=== PATIENT | female | born 1985 | race Caucasian/White ===

== ENCOUNTER 2017-09-03 07:18 | Emergency (ER) | payer SELFPAY ==
[2017-09-03 07:28] VITALS: BP 144/94; PULSE 110; TEMP 97.9; BMI 36.0
[2017-09-03] MEDS ORDERED: SODIUM CHLORIDE 0.9% 1000 ML INFUS.BAG IV ONE (07:29)
[2017-09-03] MEDS ORDERED: ONDANSETRON 4 MG/2 ML VIAL IVPUSH ONE (07:29)
[2017-09-03] MEDS ORDERED: HYDROmorphone HCL CARPU-JECT 1 MG/1 ML DISP.SYRIN IVPUSH ONE ×3 (07:33→11:00)
[2017-09-03] MEDS ORDERED: ONDANSETRON 4 MG/2 ML VIAL ONE (07:41)
[2017-09-03] MEDS ORDERED: HYDROmorphone HCL CARPU-JECT 1 MG/1 ML DISP.SYRIN ONE ×3 (07:41→11:11)
--- NOTE | 2017-09-03 07:52 | PDOC ---
History of Present Illness - General Chief Complaint: Nausea/Vomiting Stated Complaint: VOMITING,ABD PAIN Time Seen by Provider: 09/03/17 07:26 - History of Present Illness Initial Comments: 09/03/17 10:26 Chief complaint right flank pain History of present illness: 31 years old past medical history significant for asthma, polycystic ovarian disease presents to the emergency department with gradual onset right flank pain starting last night associated with nausea vomiting. Pain is 10 out of 10 colicky no alleviating factors worse with movement. Patient had similar symptoms approximately one year ago secondary to a ruptured ovarian cyst Her pain today is higher up on the right side and right flank Past History - Past Medical History Allergies/Adverse Reactions: Allergies Allergy/AdvReac Type Severity Reaction Status Date / Time morphine Allergy Hives Verified 09/03/17 07:24 Home Medications: Ambulatory Orders Famotidine [Pepcid] 20 mg PO DAILY 09/03/17 Oxycodone HCl/Acetaminophen [Percocet 5-325 mg Tablet] 1 tab PO Q6H #12 tablet MDD 3 09/03/17 COPD: No Other medical history: PCOS - Suicide/Smoking/Psychosocial Hx Smoking History: Never smoked Have you smoked in the past 12 months: No Information on smoking cessation initiated: No Hx Alcohol Use: No Drug/Substance Use Hx: No Substance Use Type: None Review of Systems - Review of Systems Comments:: 09/03/17 10:27 ROS: A complete review of 10 out of 10 review of systems is taken and is negative apart from what is previously mentioned below and in the HPI. *Physical Exam - Vital Signs Last Vital Signs Temp Pulse Resp BP Pulse Ox 97.9 F 110 H 20 144/94 100 09/03/17 07:19 09/03/17 07:19 09/03/17 07:19 09/03/17 07:19 09/03/17 07:19 - Physical Exam Comments: 09/03/17 10:27 Vitals: Triage Vital signs reviewed General Appearance: no acute distress, well nourished well developed, Head: Atraumatic, Eyes: Pupils equal reactive round, extraocular movement intact Neck: Supple;No Nucal rigidity Chest Wall: Nontender Cardiac: Regular rate and rhythym, no murmurs, no rubs, no gallops, Lungs: Clear to auscultation bilateral, good air movement bilaterally, Abdomen: Soft, non distended, normal bowel sounds, non tender to palpation, right CVA tenderness to palpation Extremities: Full range of motion to all extremities, no cyanosis, clubbing, or edema Skin: Warm and dry, no rashes or lesions, no rash, no petechiae Neuro: AOX3]; [Cranial Nerves 2-12 grossly intact], [Strength intact to all extremities], [Sensation intact to all extremities],[gait normal] Psych: [normal mood, normal affect] ED Treatment Course - LABORATORY CBC & Chemistry Diagram: 09/03/17 08:04 09/03/17 08:04 Medical Decision Making - Medical Decision Making 09/03/17 13:13 31 years old with right sided abdominal pain. On pelvic examination patient tender in the right adnexal Despite multiple rounds pain medication patient still in pain Ultrasound demonstrates 2.6 cm cyst Given pain CAT scan ordered to rule out additional pathology CAT scan findings as dictated no other acute additional pathology besides cyst Case discussed with [facility]. Given size of cyst no acute surgical intervention needed no evidence of torsion. Patient can follow-up on Wednesday at clinic We'll discharge home with Percocet and Motrin Findings, the need for follow-up, strict return instructions discussed with patient. *DC/Admit/Observation/Transfer Diagnosis at time of Disposition: Ovarian cyst Qualifiers: Laterality: right Qualified Code(s): N83.201 - Unspecified ovarian cyst, right side - Discharge Dispostion Admit: No - Referrals Referrals: Blanca Rothman MD [Staff Physician] - - Patient Instructions Printed Discharge Instructions: Ovarian Cyst Additional Instructions: Purchase an [id number] stool softener., Such as Colace take as prescribed on package. Percocet as directed as needed for pain. Take Aleve 2 tabs twice a day. Drink plenty of fluids. On Wednesday follow-up with [facility]CE ASSOCIATE. Return to the emergency department for any severe uncontrollable pain fever or for any concerns. - Post Discharge Activity
[2017-09-03] MEDS ORDERED: KETOROLAC TROMETHAMINE 30 MG/1 ML VIAL ONE (08:14)
[2017-09-03] MEDS ORDERED: KETOROLAC TROMETHAMINE 30 MG/1 ML VIAL IVPUSH ONE (08:24)
[2017-09-03 08:51] LABS: PH,URINE 5.5 (4.5-8); URINE BILIRUBIN 1+ (NEGATIVE); URINE GLUCOSE (UA) Negative (NEGATIVE); URINE KETONE Trace (NEGATIVE); URINE NITRITE Negative (NEGATIVE); URINE UROBILINOGEN 0.2 (0.2-1.0)
[2017-09-03 09:01] LABS: URINE APPEARANCE CLOUDY; URINE BLOOD 1+ (NEGATIVE); URINE COLOR YELLOW; URINE PROTEIN 1+ (NEGATIVE)
[2017-09-03 09:01] LABS: EOS % 0.9 % (0-4.5); HEMATOCRIT 30.7 % (32.4-45.2); HEMOGLOBIN 9.5 GM/dl (10.7-15.3); LYMPH % 6.3 % (8-40); MCH 24.2 pg (25.7-33.7); MCHC 30.9 g/dl (32.0-36.0); MEAN CELL VOLUME 78.2 fl (80-96); MEAN PLT VOLUME 9.3 fl (7.5-11.1); MONO % 7.3 % (3.8-10.2); NEUT % 85.5 % (42.8-82.8); PLATELET COUNT 413 K/MM3 (134-434); RBC 3.93 M/mm3 (3.60-5.2); RDW 16.2 % (11.6-15.6); WHITE BLOOD COUNT 9.6 K/mm3 (4.0-10.8)
[2017-09-03 09:02] LABS: INR 1.14 (0.82-1.09); PROTHROMBIN TIME (PATIENT) 12.7 SEC (10.2-13.0)
[2017-09-03 09:02] LABS: ALBUMIN 4.4 g/dl (3.5-5.0); ALK PHOS 55 U/L (32-92); ANION GAP 6 (8-16); BILIRUBIN,TOTAL 0.4 mg/dl (0.2-1.0); BLOOD UREA NITROGEN 8 mg/dl (7-18); CALCIUM 9.2 mg/dl (8.4-10.2); CHLORIDE 107 mmol/L (98-107); CO2 22 mmol/L (22-28); CREATININE 0.5 mg/dl (0.6-1.3); GLUCOSE,RANDOM 98 mg/dl (74-106); POTASSIUM 4.1 mmol/L (3.5-5.1); SGOT/AST 24 U/L (10-42); SGPT/ALT 17 U/L (10-40); SODIUM 135 mmol/L (136-145); TOT PROT 7.9 g/dl (6.4-8.3)
[2017-09-03 09:10] LABS: ACTIVATED PTT 19.7 SECONDS (24.0-38.9)
[2017-09-03 10:18] LABS: EPI CELLS FEW /HPF; URINE BACTERIA FEW /hpf (NEGATIVE)
== END 2017-09-03 13:24 | disposition home or self-care (01) ==
LOC: FER 07:18
PROC: 3E0337Z Introduction of Electrolytic and Water Balance Substance into Peripheral Vein, Percutaneous Approach (ICD-10-PCS; principal; 2017-09-03)
PROC: 3E033NZ Introduction of Analgesics, Hypnotics, Sedatives into Peripheral Vein, Percutaneous Approach (ICD-10-PCS; 2017-09-03)
PROC: 3E0333Z Introduction of Anti-inflammatory into Peripheral Vein, Percutaneous Approach (ICD-10-PCS; 2017-09-03)
PROC: 3E033GC Introduction of Other Therapeutic Substance into Peripheral Vein, Percutaneous Approach (ICD-10-PCS; 2017-09-03)
DX: N83.201 Unspecified ovarian cyst, right side (principal)
CPT/HCPCS: 36415; 74177-TC; 76856-TC; 80053; 81003; 81015; 84703; 85025; 85610; 85730; 86850; 86900; 86901; 99283-25

== ENCOUNTER 2017-09-06 16:10 | Emergency (ER) | payer SELFPAY ==
[2017-09-06 16:20] VITALS: BP 175/115; PULSE 113; TEMP 98.6; BMI 36.0
--- NOTE | 2017-09-06 16:27 | PDOC ---
History of Present Illness - General History Source: Patient Exam Limitations: No Limitations - History of Present Illness Initial Comments: 09/06/17 16:36 The patient is a 31 year old female, with a significant past medical history of PCOS, peptic ulcer disease, and asthma, who presents to the emergency department with abdominal pain since earlier this morning. The patient reports her pain is localized to her epigastrum and radiates into her back. She describes her pain as sharp in nature, and "piercing into his back." She reports associated nausea and vomiting(nonbloody/nonbilious), but denies any hemoptysis, diarrhea, constipation, melena, or hematochezia. Patient reports her pain is exacerbated with emesis. Patients last normal bowel movement was this morning. Patient reports she has been unable to tolerate solids or fluids p.o. The patient denies any fever, chills, headache, or dizziness. She denies any chest pain, shortness of breath, diaphoresis, or palpitations. She denies any dysuria, hematuria, frequency or urgency. She denies any recent travel or sick contacts. Patient reports she is currently on her menstrual period. Allergies: Morphine Past Surgical History: None reported Social History: Former smoker(Quit 5 years ago). No ETOH or recreational drug use. <Venice Em - Last Filed: 09/06/17 16:50> <Ree Reagan - Last Filed: 09/06/17 17:22> - General Chief Complaint: Pain Stated Complaint: abdominal pain Time Seen by Provider: 09/06/17 16:27 Past History <Venice Em - Last Filed: 09/06/17 16:50> - Past Medical History Asthma: Yes COPD: No GI Disorders: Yes (peptic ulcer) Other medical history: PCOS - Reproductive History (#): 2 Para: 2 Polycystic Ovaries: Yes - Suicide/Smoking/Psychosocial Hx Smoking History: Former smoker Have you smoked in the past 12 months: No If you are a former smoker, when did you quit?: 5 years ago Information on smoking cessation initiated: No Hx Alcohol Use: No Drug/Substance Use Hx: No Substance Use Type: None <Ree Reagan - Last Filed: 09/06/17 17:22> - Past Medical History Allergies/Adverse Reactions: Allergies Allergy/AdvReac Type Severity Reaction Status Date / Time morphine Allergy Hives Verified 09/06/17 16:12 Home Medications: Ambulatory Orders Famotidine [Pepcid] 20 mg PO DAILY 09/03/17 Oxycodone HCl/Acetaminophen [Percocet 5-325 mg Tablet] 1 tab PO Q6H #12 tablet MDD 3 09/03/17 Review of Systems - Review of Systems Able to Perform ROS?: Yes Comments:: 09/06/17 16:38 GENERAL/CONSTITUTIONAL: No fever or chills. No weakness. HEAD, EYES, EARS, NOSE AND THROAT: No change in vision. No ear pain or discharge. No sore throat. CARDIOVASCULAR: No chest pain or shortness of breath. RESPIRATORY: No cough, wheezing, or hemoptysis. GASTROINTESTINAL: Yes epigastric abdominal pain, nausea, vomiting. No diarrhea, constipation, melena, or hematochezia. GENITOURINARY: No dysuria, frequency, or change in urination. MUSCULOSKELETAL: No joint or muscle swelling or pain. No neck or back pain. SKIN: No rash NEUROLOGIC: No headache, vertigo, loss of consciousness, or change in strength/ sensation. ENDOCRINE: No increased thirst. No abnormal weight change. HEMATOLOGIC/LYMPHATIC: No anemia, easy bleeding, or history of blood clots. ALLERGIC/IMMUNOLOGIC: No hives or skin allergy. <Venice Em - Last Filed: 09/06/17 16:50> *Physical Exam - Vital Signs Last Vital Signs Temp Pulse Resp BP Pulse Ox 98.6 F 113 H 18 175/115 99 09/06/17 16:11 09/06/17 16:11 09/06/17 16:11 09/06/17 16:11 09/06/17 16:11 - Physical Exam Comments: 09/06/17 16:39 GENERAL: Awake, alert, and fully oriented, in moderate distress. Patient tearful on exam. HEAD: No signs of trauma EYES: PERRLA, EOMI, sclera anicteric, conjunctiva clear ENT: Auricles normal inspection, hearing grossly normal, nares patent, oropharynx clear without exudates. Moist mucosa NECK: Normal ROM, supple, no lymphadenopathy, JVD, or masses LUNGS: Breath sounds equal, clear to auscultation bilaterally. No wheezes, and no crackles HEART: Tachycardic. Regular rhythm, normal S1 and S2, no murmurs, rubs or gallops ABDOMEN: Tenderness to palpation epigastrically. Soft, normoactive bowel sounds. No guarding, no rebound. No masses EXTREMITIES: Normal range of motion, no edema. No clubbing or cyanosis. No cords, erythema, or tenderness NEUROLOGICAL: Cranial nerves II through XII grossly intact. Normal speech, normal gait SKIN: Warm, Dry, normal turgor, no rashes or lesions noted. <Venice Em - Last Filed: 09/06/17 16:50> - Vital Signs Last Vital Signs Temp Pulse Resp BP Pulse Ox 98.6 F 113 H 18 175/115 99 09/06/17 16:11 09/06/17 16:11 09/06/17 16:11 09/06/17 16:11 09/06/17 16:11 <Ree Reagan - Last Filed: 09/06/17 17:22> ED Treatment Course - LABORATORY CBC & Chemistry Diagram: 09/06/17 16:55 09/06/17 16:55 <Ree Reagan - Last Filed: 09/06/17 17:22> Medical Decision Making - Medical Decision Making 09/06/17 17:14 PT presents to the ED complaining of epigastric pain, multiple episodes of nausea and vomiting. Reports that she has a history of PUD and feels that her ulcer is "acting up". Seen in the ED on 09/03 for flank pain, had extensive work up that was negative at that time. plan was for labs and pain control with reglan, pepcid and maalox, but patient became upset and was asking nurse for narcotic pain control. I went to see the patient, offered her IV tylenol and continued IV hydration, and stressed the importance of waiting until her labs were back, but patient chose to leave AMA. Understood the risk of undiagnosed pancreatitis, billiary disease, severe dehydration and . <Ree Reagan - Last Filed: 09/06/17 17:22> *DC/Admit/Observation/Transfer - Attestations Scribe Attestion: 09/06/17 16:40 Documentation prepared by Venice Em, acting as medical authorization specialist for Ree Reagan MD. <[email or web address] enrique - Last Filed: 09/06/17 16:50> - Discharge Dispostion Admit: No <Ree Reagan - Last Filed: 09/06/17 17:22> Diagnosis at time of Disposition: Nausea and vomiting Qualifiers: Vomiting type: unspecified Vomiting Intractability: non-intractable Qualified Code(s): R11.2 - Nausea with vomiting, unspecified - Discharge Dispostion Disposition: AGAINST MEDICAL ADVICE Condition at time of disposition: Good - Patient Instructions Printed Discharge Instructions: DI for Vomiting -- Adult Additional Instructions: return to the ED for severe pain, pain with fever, bloody vomit or stool. Even though you left the ED against medical advice, you should return if your symptoms persist or get worse. You should call your doctor for follow up tomorrow AM.
[2017-09-06] MEDS ORDERED: FAMOTIDINE IV 20 MG/12 ML VIAL IVPB ONE (16:28)
[2017-09-06] MEDS ORDERED: MAG HYDROX/AL HYDROX/SIMETH 30 ML UNIT-DOSE CUP PO PRN (16:28)
[2017-09-06] MEDS ORDERED: METOCLOPRAMIDE HCL INJECTION 10 MG/2 ML VIAL IVPUSH ONE (16:28)
[2017-09-06] MEDS ORDERED: MAG HYDROX/AL HYDROX/SIMETH 30 ML UNIT-DOSE CUP ONE (16:43)
[2017-09-06] MEDS ORDERED: FAMOTIDINE 20 MG/50 ML IVPB 20 MG/50 ML MG IVPB ONE (16:43)
[2017-09-06 17:05] LABS: BASO % 0.8 % (0-2.0); EOS % 1.3 % (0-4.5); HEMATOCRIT 29.6 % (32.4-45.2); HEMOGLOBIN 8.9 GM/dl (10.7-15.3); MCH 23.6 pg (25.7-33.7); MCHC 30.3 g/dl (32.0-36.0); MEAN CELL VOLUME 77.8 fl (80-96); MEAN PLT VOLUME 8.4 fl (7.5-11.1); NEUT % 55.9 % (42.8-82.8); PLATELET COUNT 388 K/MM3 (134-434); RDW 15.4 % (11.6-15.6); WHITE BLOOD COUNT 5.4 K/mm3 (4.0-10.8)
[2017-09-06 17:21] LABS: ALBUMIN 4.3 g/dl (3.5-5.0); ALK PHOS 52 U/L (32-92); ANION GAP 8 (8-16); BILIRUBIN,TOTAL 0.1 mg/dl (0.2-1.0); BLOOD UREA NITROGEN 12 mg/dl (7-18); CHLORIDE 106 mmol/L (98-107); CO2 23 mmol/L (22-28); CREATININE 0.6 mg/dl (0.6-1.3); GLUCOSE,RANDOM 108 mg/dl (74-106); POTASSIUM 3.7 mmol/L (3.5-5.1); SGOT/AST 24 U/L (10-42); SGPT/ALT 16 U/L (10-40); SODIUM 137 mmol/L (136-145); TOT PROT 7.6 g/dl (6.4-8.3)
== END 2017-09-06 17:22 | disposition left against medical advice (07) ==
LOC: FER 16:10
PROC: 3E033GC Introduction of Other Therapeutic Substance into Peripheral Vein, Percutaneous Approach (ICD-10-PCS; principal; 2017-09-06)
DX: R11.2 Nausea with vomiting, unspecified (principal)
CPT/HCPCS: 80053; 84703; 85025; 99283-25